=== PATIENT | female | born 1945 | race Caucasian/White ===

== ENCOUNTER 2018-08-25 08:56 | Outpatient (RCR) | payer MEDICARE, OTHER ==
--- NOTE | 2018-08-23 11:29 | NUR ---
08/20/18 Patient in today for new admission. Pt presents clean and neat. Pt is alert and oriented x 4. Pt states her PCP referred her to IOP. Pt reports having panic attacks. Pt denies any suicidal thoughts at this time. Pt states she is caring for her whom has dementia. Pt states her is in denial over this. Pt will be admitted to [facility] 3x/week. Pt will follow up in one month. Treatment team concluded.
[~2018-08-25] VITALS: Ht 157.5 cm; Wt 112.9 kg
[~2018-08-25 08:56] MED LIST: ADVAIR DISK1; ASPIRIN 81 LOW81 MG PO; BACLOFEN10 MG PO; BENAZEPRIL40 M1 PO; FLONASE AL50 MCG/ACT; LOPRESSOR50 M2 PO; PRAVASTATIN SOD40 MG PO; RANITIDINE300 MG PO; SM ALLERGY50 MCG/ACT; TRIAM/NYSTA1 EX; VOLTAREN1%GEL TOP; XANAX1 MG PO
[2018-08-25 13:13] VITALS: BP 147/73
[2018-09-15] MEDS ORDERED: MECLIZINE XX (10:56)
== END 2018-08-26 23:59 | disposition still patient (30) ==
LOC: PATHWAYS 08:56
PROVIDERS: ATTEND Specialist
DX: F41.1 Generalized anxiety disorder (principal)